=== PATIENT | female | born 1950 | race Caucasian/White ===

== ENCOUNTER 2018-04-15 10:00 | Inpatient (IN) | payer OTHER ==
[~2018-04-15] VITALS: Ht 165.1 cm; Wt 94.9 kg
--- NOTE | ~2018-04-15 | EKG ---
[address] [address] ELECTROCARDIOGRAM REPORT Name: JUVENCIO HAYES Room #: 431-P ADM IN M.R.#: [id number] Admission: 04/15/18 Attend Phys: Karo Auguste MD Discharge: Date of : 46 Report #: [id number] THIS REPORT FOR: //name// [facility]ly [facility] ED Test Date: 2018-04-15 Test Time: 10:38:59 Pat Name: JUVENCIO HAYES Department: Room: 431 Gender: F Palliative Care Physician: ANU : 1950 Requested By: Estela Vasquez Order Number: [id number] MD: Norris Lazo Measurements Intervals [place] Rate: 68 P: 57 MA: 165 QRS: 15 QRSD: 97 T: 19 QT: 404 QTc: 430 Interpretive Statements Sinus rhythm Inferior infarct, old No previous ECG available for comparison Electronically Signed On 04-15-2018 16:48:39 SPARE PERSON by Norris Lazo [email or web address] <ELECTRONICALLY SIGNED> By: Norris Lazo MD 04/15/18 1648 1038 Grey Lazo MD /STEPHANIE
--- NOTE | ~2018-04-15 | HC ---
[facility] [place] [address] CONSULTATION Name: JUVENCIO HAYES Room #: 222-P ADM IN M.R.#: [id number] Admission: 04/15/18 Attend Phys: Karo Auguste MD Discharge: Date of : 46 Report #: [id number] THIS REPORT FOR: //name// CC: NO PCP Karo Auguste DATE OF SERVICE: 04/23/2018 HISTORY OF PRESENT ILLNESS: The patient is a 68-year-old white female visiting from [place], [place] with a history of severe thoracolumbar scoliosis. She underwent Coffey edelmira surgery at the [facility] 49 years ago. She has had problems developing with the surgical site, significant low back pain and subsequently underwent a major two-step corrective surgery in [place], [place] for impaired instrumentation. She had an anterior approach with L4, L5 and S1 cages and then posteriorly, there were 3 more rods that were added and she had 6-inch spikes in her pelvis. This occurred on two different dates in March. She went to stay with her daughter in the [place] area postoperatively to help with her recovery. She is not to do any bending, lifting or twisting. While staying with her daughter, she had the onset of severe nausea, vomiting and developed acute diverticulitis. She was diagnosed with Staphylococcus septicemia, had acute renal insufficiency with acute interstitial nephritis. She has multiple consultants involved. She has had a significant functional decline, was trying to ambulate as best she could with a walker prior to this acute hospitalization. We are seeing her now in rehabilitation medicine consultation. PAST MEDICAL HISTORY: Delineated above. She has a prior history of the back surgery x 2 in [place] and has had a prior cholecystectomy. MEDICATIONS: Please see the full medication listing. This includes vitamins, herbals, and supplements. ALLERGIES: CODEINE, MEPERIDINE, MORPHINE, PENTAZOCINE. SOCIAL HISTORY: As noted above. She and her are currently staying with her daughter in an apartment here in the [place] area. No steps. Daughter works and the patient and are there during the day. REVIEW OF SYSTEMS: Complains of abdominal discomfort. The back pain is overall improved. Concern regarding balance overall weakness and decreased ability. No current chest pain or shortness of breath. PHYSICAL EXAMINATION: GENERAL: Pleasant 68-year-old white female in no obvious distress. VITAL SIGNS: Last [id number] temperature 97.8, pulse 74, respirations 18, blood pressure 154/103. [facility] [address] [place] [address] CONSULTATION Name: JUVENCIO HAYES Room #: 222-P ADM IN M.R.#: [id number] Admission: 04/15/18 Attend Phys: Karo Auguste MD Discharge: Date of : 46 Report #: [id number] NEUROLOGIC: She is alert, pleasant, oriented, excellent historian. Facies are symmetric. Functional range of motion of both upper extremities. Strength is a grade 4 to 4-/5. CHEST: Sounded clear to auscultation. CARDIOVASCULAR: Regular rate and rhythm. ABDOMEN: Bowel sounds positive, nontender. EXTREMITIES: She has the anterior abdominal midline incision that appears to be healing. There is no erythema. On examination of her back, she has a very long back incision essentially from the nape of the neck all the way down to her sacrum. No evidence of erythema. Lower extremities functional range of motion, strength is grade 4-/5. DTRs are 1. There is no clonus. She is standby assistance with sit to stand. She has irregular steppage with attempted ambulation, decreased balance, very unsteady without any type of assistive device, fatigues quickly, min assist to contact guard to attempt any steps. ASSESSMENT: A 68-year-old white female with a complex history noted above. 1. Severe scoliosis with chronic back pain status post major corrective surgery x 2 for impaired instrumentation as described above. 2. Gait instability with lower extremity weakness and decreased balance and ADLs. 3. Staph septicemia. 4. Acute diverticulitis. 5. Sepsis. 6. Acute renal insufficiency. 7. Acute interstitial nephritis. 8. Chronic low back pain. 9. Hypertension. PLAN: Occupational therapy will reassess. I am anticipating that the patient would benefit from a short acute in-hospital inpatient rehabilitation stay, but we will see what the occupational therapy reassessment reveals. Discussed with the patient and several family members. We will be glad to follow along with you. By: [id number] Dorian Meade MD /nt
--- NOTE | ~2018-04-15 | HC ---
[facility] [place] [address] CONSULTATION Name: JUVENCIO HAYES Room #: 431-P ADM IN M.R.#: [id number] Admission: 04/15/18 Attend Phys: Karo Auguste MD Discharge: Date of : 46 Report #: [id number] THIS REPORT FOR: //name// CC: NO PCP Karo Auguste DATE OF SERVICE: 04/16/2018 HISTORY OF PRESENT ILLNESS: A 68-year-old white woman who developed severe abdominal pain, gross lower abdomen, mainly left-sided; severe nausea and vomiting, evaluated in her hometown in [place], [place], diagnosed to have gastroenteritis, and discharged home on nausea medications. She did not improve. She is evaluated in the ER here. The CT scan revealed diverticulitis, her blood cultures returned positive, and an ID opinion is requested. Today, the patient is feeling better, still some abdominal pain, lower abdomen. DRUG ALLERGIES: CODEINE, MEPERIDINE, MORPHINE, PENTAZOCINE. MEDICATIONS: The patient is currently on treatment with Flagyl 500 mg IV every 8 hours, ciprofloxacin 400 mg IV twice daily, single-dose vancomycin. She received Solu-Medrol 125 mg IV one dose. She is on Ambien and diazepam at bedtime, Forteo subcutaneously, lactobacillus acidophilus, oxycodone immediate release 7.5 mg every 8 hours if needed, fentanyl 25 mcg IV q. 3 h. p.r.n., D5 and normal saline 1000 mL every 10 hours. PAST MEDICAL HISTORY: Exploratory laparotomy for necrotic omentum many years ago. History of extensive lumbar spine instrumentation through an anterior and posterior approach, last surgical intervention on her back was in 03/2018. Previous surgery to her back required iliac crest for stabilization of the spine. SOCIAL HISTORY: with a grown daughter who is present during the interview and physical exam. REVIEW OF SYSTEMS: Abdominal pain, nausea, and vomiting, improved today. PHYSICAL EXAMINATION: GENERAL: A well-developed woman, not toxic looking, no distress. VITAL SIGNS: Temperature 98, pulse 70, respirations 16, BP 134/55, height 5 feet, 5 inches, weight 199 pounds. HEENMT: Within range. NECK: Supple. BREASTS: Deferred. LUNGS: Clear. HEART: S1, S2. No gallop or murmur. ABDOMEN: Right lower abdominal quadrant laparotomy wound, remote, [facility] [address] [place] [address] CONSULTATION Name: JUVENCIO HAYES Room #: 431-P ADM IN M.R.#: [id number] Admission: 04/15/18 Attend Phys: Karo Auguste MD Discharge: Date of : 46 Report #: [id number] infraumbilical laparotomy scar, recent. Abdomen tender, particularly left lower quadrant. No palpable masses. PELVIC AND RECTAL: Deferred. BACK: Revealed extensive scars from the thoracic to the lumbar spine area, as well as bilateral iliac crest bone harvesting procedure surgical scars. EXTREMITIES: No clubbing, cyanosis. PELVIC AND RECTAL: Deferred. EXTREMITIES: No pretibial edema. LABORATORY DATA: Sodium 142, potassium 4, BUN 8, creatinine 0.7, glucose 144. On admission, calcium 10.5 mg/dL, repeated today is 9.6 mg/dL. Alkaline phosphatase 209 U/L. WBC 8100, hemoglobin 10.6 g/dL, and platelets 295,000. Urinalysis revealed trace blood, otherwise negative. Blood cultures x2 two minutes apart revealed Gram-positive cocci. RADIOLOGY EVALUATION: The CT scan of the abdomen and pelvis revealed extensive lumbar spine instrumentation. There is also stranding and thickening of the descending colon with some fluid along the lateral conal fascia. Findings are compatible with diverticulitis, multiple colonic diverticula noticed. Appendix not visualized. Left adrenal adenoma. Possibly scarring adjacent to sacrum and iliac vessels, possibly thickening of distal stomach measuring 16 mm, status post cholecystectomy. ASSESSMENT: 1. Abdominal pain and nausea and vomiting secondary to acute diverticulitis. 2. Bacteremia with Gram-positive cocci secondary to above. 3. Extensive lumbar spine instrumentation through anterior and posterior approach, 03/07/2018. 4. History of exploratory laparotomy for necrotic omentum. 5. Status post cholecystectomy and appendectomy. 6. Thickening of distal esophagus, question etiology. 7. Normocytic normochromic anemia. SUGGESTIONS: Recommend ESR, CRP. Continue Cipro and Flagyl since the patient already improved. We will request pharmacy continue to dose vancomycin until identification of Gram-positive cocci is established. Dr. Auguste, thank you for requesting my suggestions. <ELECTRONICALLY SIGNED> By: Zi Lazo MD 04/17/18 1005 1119 Zi Lazo MD /nt
[2018-04-15 10:05] VITALS: BP 132/51
[2018-04-15 10:24] LABS: URINE BILIRUBIN NEGATIVE (Negative); URINE BLOOD TRACE (Negative); URINE CLARITY CLEAR; URINE COLOR YELLOW; URINE GLUCOSE-RANDOM* NEGATIVE (Negative); URINE KETONES NEGATIVE (Negative); URINE LEUKOCYTES-REFLEX NEGATIVE (Negative); URINE NITRITE-REFLEX NEGATIVE (Negative); URINE PROTEIN (DIPSTICK) NEGATIVE (Negative); URINE SPECIFIC GRAVITY 1.015 (1.005-1.035); URINE UROBILINOGEN 0.2 E.U./dl (0.2-1.0)
[2018-04-15 10:43] LABS: ABSOLUTE NEUTROPHILS 3.9 thou/uL (1.4-8.2); BASOPHILS 0.9 % (0.0-2.0); EOSINOPHILS 1.7 % (0.0-3.0); HEMOGLOBIN 12.2 gm/dL (12.0-15.0); LYMPHOCYTES 17.8 % (24.0-44.0); MCH 27.9 pg (26.0-34.0); MCHC 33.7 g/dL (28.0-37.0); MCV 82.9 fL (80.0-100.0); MONOCYTES 9.1 % (1.0-8.0); PLATELET COUNT 322 thou/uL (150-400); POLYS 70.5 % (36.0-66.0); RBC 4.35 mil/uL (4.20-5.00); RDW 14.2 % (10.5-14.5); WBC 5.6 thou/uL (4.0-11.0)
[2018-04-15 10:53] LABS: ANION GAP 9 mmol/L (7-16); BUN 8 mg/dL (7-18); CALCIUM 10.5 mg/dL (8.5-10.1); CHLORIDE 103 mmol/L (98-107); CO2 28 mmol/L (21-32); CREATININE 0.8 mg/dL (0.6-1.0); GLUCOSE 128 mg/dL (74-106); SODIUM 140 mmol/L (136-145)
[2018-04-15 11:02] LABS: ALBUMIN 3.6 g/dL (3.4-5.0); LIPASE 113 U/L (73-393); SGOT 18 U/L (15-37); SGPT 22 U/L (30-65); TOTAL BILIRUBIN 0.4 mg/dL (<0.1-1.0); TOTAL PROTEIN 7.5 g/dL (6.4-8.2); TROPONIN-I <0.06 ng/mL (<0.06)
[2018-04-15] MEDS ORDERED: OXYCODONE HCL15 MG PO (11:16)
[2018-04-15] MEDS ORDERED: HYOSCYAMINE0.125 MG PO (11:17)
[2018-04-15] MEDS ORDERED: NEURONTIN 300300 M1 PO (11:17)
[2018-04-15] MEDS ORDERED: ZOFRAN ODT4 MG PO (11:18)
[2018-04-15] MEDS ORDERED: FORTEO750 MCG/3 SUBQ (11:18)
[2018-04-15] MEDS ORDERED: DIAZEPAM 10 MG10 M2 PO (11:20)
[2018-04-15 12:24] VITALS: BP 145/65
[2018-04-15 13:30] VITALS: BP 158/82
[2018-04-15] MEDS ORDERED: MAGOX 400400 MG PO (14:20)
[2018-04-15] MEDS ORDERED: COLACE100 MG PO (14:20)
[2018-04-15] MEDS ORDERED: PROBIOTIC1 EAC1 PO (14:21)
[2018-04-15] MEDS ORDERED: CALCIUM 600 +1 EAC1 PO (14:21)
[2018-04-15 20:00] VITALS: BP 126/63
[2018-04-16 04:00] VITALS: BP 106/45
[2018-04-16 06:45] LABS: HEMATOCRIT 30.7 % (37.0-47.0); HEMOGLOBIN 10.6 gm/dL (12.0-15.0); MCH 28.5 pg (26.0-34.0); MCHC 34.4 g/dL (28.0-37.0); MCV 82.7 fL (80.0-100.0); RBC 3.71 mil/uL (4.20-5.00); WBC 8.1 thou/uL (4.0-11.0)
[2018-04-16 06:56] LABS: CALCIUM 9.6 mg/dL (8.5-10.1); CREATININE 0.7 mg/dL (0.6-1.0)
[2018-04-16 08:53] VITALS: BP 134/55
[2018-04-16 17:17] VITALS: BP 137/65
[2018-04-16 19:39] VITALS: BP 135/69
[2018-04-17 05:10] VITALS: BP 137/59
[2018-04-17 08:25] VITALS: BP 124/63
[2018-04-17 17:17] VITALS: BP 167/81
[2018-04-18 01:50] LABS: FOLIC ACID 16.3 ng/mL (8.6-58.9)
[2018-04-18 08:23] VITALS: BP 158/72
[2018-04-18 12:56] LABS: ABSOLUTE NEUTROPHILS 3.6 thou/uL (1.4-8.2); BASOPHILS 1.3 % (0.0-2.0); HEMATOCRIT 32.7 % (37.0-47.0); HEMOGLOBIN 11.2 gm/dL (12.0-15.0); LYMPHOCYTES 22.5 % (24.0-44.0); MCH 28.6 pg (26.0-34.0); MCHC 34.3 g/dL (28.0-37.0); MCV 83.3 fL (80.0-100.0); MONOCYTES 10.5 % (1.0-8.0); PLATELET COUNT 265 thou/uL (150-400); POLYS 61.7 % (36.0-66.0); RBC 3.93 mil/uL (4.20-5.00); RDW 14.2 % (10.5-14.5); WBC 5.9 thou/uL (4.0-11.0)
[2018-04-18 19:26] VITALS: BP 166/71
[2018-04-19 04:39] LABS: ABSOLUTE NEUTROPHILS 2.5 thou/uL (1.4-8.2); BASOPHILS 1.2 % (0.0-2.0); EOSINOPHILS 5.9 % (0.0-3.0); HEMATOCRIT 29.5 % (37.0-47.0); HEMOGLOBIN 10.2 gm/dL (12.0-15.0); LYMPHOCYTES 26.8 % (24.0-44.0); MCH 28.7 pg (26.0-34.0); MCHC 34.5 g/dL (28.0-37.0); MCV 83.3 fL (80.0-100.0); MONOCYTES 11.9 % (1.0-8.0); PLATELET COUNT 235 thou/uL (150-400); POLYS 54.2 % (36.0-66.0); RBC 3.54 mil/uL (4.20-5.00); RDW 13.9 % (10.5-14.5); WBC 4.6 thou/uL (4.0-11.0)
[2018-04-19 05:00] LABS: ALBUMIN 2.6 g/dL (3.4-5.0); CALCIUM 8.4 mg/dL (8.5-10.1); CREATININE 0.7 mg/dL (0.6-1.0); MAGNESIUM 1.6 mg/dL (1.8-2.4); TOTAL BILIRUBIN 0.4 mg/dL (<0.1-1.0); TOTAL PROTEIN 5.4 g/dL (6.4-8.2)
[2018-04-19 07:57] VITALS: BP 143/79
[2018-04-19 19:52] VITALS: BP 148/66
[2018-04-20 08:20] VITALS: BP 155/79
[2018-04-20 21:31] VITALS: BP 152/82
[2018-04-21 07:39] LABS: HEMATOCRIT 29.7 % (37.0-47.0); HEMOGLOBIN 10.2 gm/dL (12.0-15.0); MCH 28.4 pg (26.0-34.0); MCHC 34.3 g/dL (28.0-37.0); MCV 82.8 fL (80.0-100.0); RBC 3.59 mil/uL (4.20-5.00); RDW 14.3 % (10.5-14.5); WBC 5.6 thou/uL (4.0-11.0)
[2018-04-21 07:52] VITALS: BP 154/81
[2018-04-21 07:58] LABS: CALCIUM 9.1 mg/dL (8.5-10.1); MAGNESIUM 1.7 mg/dL (1.8-2.4); POTASSIUM 3.3 mmol/L (3.5-5.1)
[2018-04-21 08:02] LABS: CREATININE 2.1 mg/dL (0.6-1.0)
[2018-04-21 20:16] LABS: URINE BILIRUBIN NEGATIVE (Negative); URINE BLOOD NEGATIVE (Negative); URINE CLARITY CLEAR; URINE COLOR YELLOW; URINE GLUCOSE-RANDOM* NEGATIVE (Negative); URINE KETONES NEGATIVE (Negative); URINE LEUKOCYTES-REFLEX NEGATIVE (Negative); URINE NITRITE-REFLEX NEGATIVE (Negative); URINE PROTEIN (DIPSTICK) NEGATIVE (Negative); URINE SPECIFIC GRAVITY <= 1.005 (1.005-1.035); URINE UROBILINOGEN 0.2 E.U./dl (0.2-1.0)
[2018-04-21 21:06] VITALS: BP 146/78
[2018-04-22 06:46] LABS: CALCIUM 9.4 mg/dL (8.5-10.1); CREATININE 2.2 mg/dL (0.6-1.0); POTASSIUM 3.6 mmol/L (3.5-5.1)
[2018-04-22 07:30] VITALS: BP 156/75
[2018-04-22 19:25] VITALS: BP 153/98
[2018-04-23 01:30] LABS: HEMATOCRIT 28.8 % (37.0-47.0); HEMOGLOBIN 9.8 gm/dL (12.0-15.0); MCH 28.5 pg (26.0-34.0); MCHC 34.1 g/dL (28.0-37.0); MCV 83.6 fL (80.0-100.0); PLATELET COUNT 156 thou/uL (150-400); RBC 3.45 mil/uL (4.20-5.00); RDW 14.4 % (10.5-14.5); WBC 6.7 thou/uL (4.0-11.0)
[2018-04-23 01:46] LABS: ALBUMIN 2.8 g/dL (3.4-5.0); CALCIUM 9.1 mg/dL (8.5-10.1); PHOSPHORUS 3.3 mg/dL (2.5-4.9); POTASSIUM 3.3 mmol/L (3.5-5.1); TOTAL BILIRUBIN 0.4 mg/dL (<0.1-1.0); TOTAL PROTEIN 5.8 g/dL (6.4-8.2)
[2018-04-23 02:15] LABS: ABSOLUTE NEUTROPHILS 4.8 thou/uL (1.4-8.2); METAMYELOCYTES 2 %
[2018-04-23 02:16] LABS: PLATELET ESTIMATE NORMAL; POLYCHROMASIA OCCASIONAL
[2018-04-23 07:40] VITALS: BP 154/103
[2018-04-23 19:55] VITALS: BP 149/61
[2018-04-24 04:25] LABS: CALCIUM 9.2 mg/dL (8.5-10.1); CREATININE 1.9 mg/dL (0.6-1.0); POTASSIUM 3.5 mmol/L (3.5-5.1)
[2018-04-24 07:52] VITALS: BP 155/77
[2018-04-24] MEDS ORDERED: FENTANYL 0.50 MCG/ML IV PUSH (11:09)
[2018-04-24] MEDS ORDERED: ONDANSETRON HCL4 M1 IV PUSH (11:09)
[2018-04-24] MEDS ORDERED: MIRALAX17 GM PO (11:09)
[2018-04-24] MEDS ORDERED: ACETAMINOPHEN325 M1 PO (11:09)
[2018-04-24] MEDS ORDERED: K-DUR 20 MEQ T20 MEQ PO (11:09)
== END 2018-04-24 18:24 | DRG 871 ==
LOC: ER 10:00 → 4E 11:56 → EROBS 11:56 → 4E 12:46 → SICU 04-17 17:57
PROVIDERS: Internal Medicine; Internal Medicine Infectious Disease; Nurse Practitioner Family
PROC: 05HB33Z Insertion of Infusion Device into Right Basilic Vein, Percutaneous Approach (ICD-10-PCS; principal; 2018-04-18)
DX: A41.2 Sepsis due to unspecified staphylococcus (principal); E43 Unspecified severe protein-calorie malnutrition; N10 Acute pyelonephritis; N17.9 Acute kidney failure, unspecified; K57.92 Diverticulitis of intestine, part unspecified, without perforation or abscess without bleeding; D64.9 Anemia, unspecified; M41.9 Scoliosis, unspecified; G89.29 Other chronic pain; M54.9 Dorsalgia, unspecified; M62.84 Sarcopenia; M81.0 Age-related osteoporosis without current pathological fracture; E87.6 Hypokalemia; E83.42 Hypomagnesemia; Z68.34 Body mass index [BMI] 34.0-34.9, adult; Z28.21 Immunization not carried out because of patient refusal; Z88.6 Allergy status to analgesic agent; Z88.8 Allergy status to other drugs, medicaments and biological substances; Z90.49 Acquired absence of other specified parts of digestive tract; Z85.3 Personal history of malignant neoplasm of breast; Z79.899 Other long term (current) drug therapy
CPT/HCPCS: 10084; 15002; 27000

== ENCOUNTER 2018-04-24 08:04 | Inpatient (IN) | payer OTHER ==
[~2018-04-24] VITALS: Ht 165.1 cm; Wt 85.7 kg
--- NOTE | ~2018-04-24 | H ---
[facility] [place] [place] [address] HISTORY AND PHYSICAL Name: JUVENCIO HAYES Room #: 515-P ADM IN M.R.#: [id number] Admission: 04/24/18 Attend Phys: Dorian Meade MD Discharge: Date of : 46 Report #: [id number] THIS REPORT FOR: //name// CC: Dorian Meade [facility] unknown DATE OF SERVICE: 04/24/2018 HISTORY AND PHYSICAL/POSTADMISSION PHYSICIAN EVALUATION HISTORY OF PRESENT ILLNESS: The patient is a 68-year-old white female visiting from [place], [place] with a history of severe thoracolumbar scoliosis. She had undergone a Coffey edelmira surgery at the [facility] 49 years ago. She had problems with low back pain and problems developing at the surgical site after these many years and subsequently underwent a major two-step corrective surgery in [place], [place] for impaired instrumentation in March. She had an anterior approach with L4, L5, and S1 cages placed and then posteriorly, there are 3 more rods that were added and she had a 6-inch spike placed in each pelvis. This occurred on two different dates in March. She went to stay with her daughter in [place] postoperatively to help with her recovery. While staying with her daughter, she had the onset of severe nausea, vomiting, and developed acute diverticulitis. She was diagnosed with Staphylococcus septicemia, had acute renal insufficiency with acute interstitial nephritis. Multiple consultants have been involved. She was noted to have a significant functional decline from her premorbid status. She developed acute kidney injury, question of postinfectious glomerulonephritis. Vancomycin and Zyvox were discontinued, was given IV fluid rehydration. She has now been admitted for acute in-hospital inpatient rehabilitation. PAST MEDICAL HISTORY: As noted above. She has a prior history of back surgery x 2 in [place] and has had a prior cholecystectomy. MEDICATIONS: Please see the full medication listing, this includes vitamins, herbals, and supplements. ALLERGIES: CODEINE, MEPERIDINE, MORPHINE, PENTAZOCINE. SOCIAL HISTORY: She and her are currently staying with their daughter in an apartment here in [facility]. No steps. Daughter works and the patient and her have been there during the day. Again, the patient is originally from [place], [place]. REVIEW OF SYSTEMS: She has some abdominal discomfort, which is improving. Back pain overall improved. She is not to do any bending, twisting or lifting. No current chest pain, shortness of breath, or focal extremity pain complaints. [facility] [address] [place] [address] HISTORY AND PHYSICAL Name: JUVENCIO HAYES Room #: 515-P [facility] IN .R.#: [id number] Admission: 04/24/18 Attend Phys: Dorian Meade MD Discharge: Date of : 46 Report #: [id number] PHYSICAL EXAMINATION: GENERAL: A pleasant 68-year-old white female, in no obvious distress. She is a good historian. VITAL SIGNS: Her last recorded temperature 98.4, pulse 70, respirations 17, blood pressure 155/77. HEENT: Appeared to be benign. NEUROLOGIC: Cranial nerves grossly intact. Facies are symmetric. CHEST: Sounded clear to auscultation. CARDIAC: Regular rate and rhythm. ABDOMEN: Bowel sounds positive, nontender. GENITOURINARY AND RECTAL: Deferred. MUSCULOSKELETAL: Functional range of motion of both upper extremities, strength is grade 4-/5. Lower extremities with functional range of motion, strength is grade 3+ to 4-/5. Upon examination of her back, she does have a very long surgical scar from the nape of the neck all the way down to her sacral area. No erythema. She also has abdominal incision, which appears to be healing. Functionally, she is standby assist with transfers. She is needing intermittent min assist for short distance ambulation with instability. ADL setup is mod assist. Tub shower and transfers are noted to be min assist. ASSESSMENT: A 68-year-old white female with the following problem list: 1. Severe scoliosis with chronic back pain, status post major corrective surgery x 2 for impaired instrumentation. 2. Bilateral lower extremity weakness, decreased balance and ADLs with gait instability. 3. Staph septicemia. 4. Acute diverticulitis. 5. Sepsis. 6. Acute renal insufficiency. 7. Acute interstitial nephritis. 8. Chronic low back pain. 9. Hypertension. PLAN: The patient is admitted for acute in-hospital inpatient rehabilitation. From a postadmission physician evaluation perspective, there are no relevant changes since the preadmission screening. Please see the prior and current medical and functional conditions and comorbidities. Please see the patient's previous and current functional status. As far as risk of complications, the patient has multiple medical comorbidities as noted above. The initial plan of care involves the interdisciplinary acute inpatient rehabilitation program with the goal of maximizing her functional independence, so she can hopefully return back to her prior living situation. Measurable functional goals would be for the patient to become modified independent with transfers, mobility, and ADLs, so she can return back to the home setting. She needs to improve her balance and independence. Prognosis is reasonably good. We would anticipate a fairly short length of stay, probably 5-10 days, depending progress. Potential [address] [address] HISTORY AND PHYSICAL Name: JUVENCIO HAYES Room #: 515-P ADM IN .R.#: [id number] Admission: 04/24/18 Attend Phys: Dorian Meade MD Discharge: Date of : 46 Report #: [id number] barriers would include her multiple medical comorbidities and decreased functional status. By: 0821 Dorian Meade MD /nt
--- NOTE | ~2018-04-24 | PLAN ---
[facility] [place] [address] REHAB UNIT PLAN OF CARE Name: JUVENCIO HAYES Room #: 515-P ADM IN M.R.#: [id number] Admission: 04/24/18 Attend Phys: Dorian Meade MD Discharge: Date of : 46 Report #: [id number] THIS REPORT FOR: //name// CC: Dorian Meade [facility] unknown DATE OF SERVICE: 04/26/2018 PROGRESS NOTE/OVERALL PLAN OF CARE SUBJECTIVE: The patient was seen earlier in followup. She was in no distress. Family has been very attentive. She has been working with therapies with transfers, contact guard assistance. Gait min-assist 175 feet with a front-wheeled walker. In occupational therapy, lower body dressing has been min-assist. ASSESSMENT: 1. Severe scoliosis with chronic back pain, status post major corrective surgery x 2 for impaired instrumentation. 2. Bilateral lower extremity weakness with decreased balance and ADLs and gait instability. 3. Staph septicemia. 4. Acute diverticulitis. 5. Sepsis. 6. Acute renal insufficiency. 7. Acute interstitial nephritis. 7. Chronic low back pain. 9. Hypertension. PLAN: The overall plan of care is based on the preadmission screen, post-admission physician evaluation and information garnered from therapy assessments. 1. Estimated length of stay is probably 5-10 days pending progress. 2. Medical prognosis is reasonably good. 3. Anticipated interventions includes the interdisciplinary acute inpatient rehabilitation program with PT and OT working with her rehab nursing assisting regarding medication management, skin care prophylaxis, bowel and bladder issues and nursing education. Case management is involved as well as the interdisciplinary rehabilitation team and consulting physicians. 4. Anticipated functional outcomes would be for the patient to become modified independent at least at the walker level with mobility and ADLs that she can return back to the home setting. 5. Discharge destination would be back home, likely initially with her daughter. 6. Expected therapy by discipline includes PT and OT 1-1/2 hours per day, each [address] [address] REHAB UNIT PLAN OF CARE Name: JUVENCIO HAYES Room #: 515-P [facility] IN ..#: [id number] Admission: 04/24/18 Attend Phys: Dorian Meade MD Discharge: Date of : 46 Report #: [id number] five days a week throughout the duration of the acute inpatient rehabilitation stay. By: [id number] 1159 Dorian Meade MD /nt
--- NOTE | ~2018-04-24 | HC ---
[facility] [place] [address] [place] [address] CONSULTATION Name: JUVENCIO HAYES Room #: 515-P ADM IN M.R.#: [id number] Admission: 04/24/18 Attend Phys: Dorian Meade MD Discharge: Date of : 46 Report #: [id number] THIS REPORT FOR: //name// CC: Dorian Meade [facility] unknown DATE OF SERVICE: 04/27/2018 NEUROBEHAVIORAL STATUS EXAMINATION ATTENDING PHYSICIAN: Dorian Meade MD ASSOCIATE MERCHANDISER: Terry Sears, PhD CLINICAL PRESENTATION: The patient is a 68-year-old female, admitted to the [facility] Rehabilitation Unit for comprehensive inpatient program to improve functional mobility and activities of daily living and self-care. She is reported to have been visiting her daughter. Her residence is [place], [place]. She carries a history of severe thoracolumbar scoliosis and had undergone a Coffey edelmira surgery at the [facility] 49 years ago. It was necessary to have a corrective surgery and she underwent a 2-step corrective surgery in [place], [place] in 03/2018. The patient has had a difficult recovery. While staying with her daughter to assist in her recovery, she developed severe nausea, vomiting and acute diverticulitis. The patient was diagnosed with a staphylococcus septicemia and acute renal insufficiency along with interstitial nephritis. Her assessment on admission to rehabilitation included severe scoliosis with chronic back pain status post major corrective surgery x 2 for impaired instrumentation, bilateral lower extremity weakness, staph septicemia, acute diverticulitis, sepsis, acute renal insufficiency, acute interstitial nephritis, chronic low back pain, and hypertension. A complete description of her medical condition and history along with medications can be found in her medical record. Neuropsychological consultation was requested to provide assistance in the assessment of cognitive and emotional status and to provide recommendations and services. Prior to this most recent medical event, she was living independently with her in their home. It shouild be noted that she required the corrective surgery because of severe mobility deficits and pain. 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 She has 5 children. Her family is described as supportive. [facility] [address] [place] [address] CONSULTATION Name: JUVENCIO HAYES Room #: 515-P [facility] IN M.R.#: [id number] Admission: 04/24/18 Attend Phys: Dorian Meade MD Discharge: Date of : 46 Report #: [id number] TECHNIQUES UTILIZED: Clinical interview, review of medical records, staff consultation and behavioral observation, mini mental status exam 2 brief version. EXAMINATION FINDINGS: The patient was alert and cooperative with the assessment. She accurately described events surrounding her admission and frustration with her lengthy recovery and ongoing medical issues. She describes her symptoms to include intermittent periods of depression and anxiety, difficulty with sleep and diminished appetite. She does not have a history of alcohol or drug abuse. Normal use of caffeine is described. There is no evidence of aphasia. She does not report auditory or visual hallucinations. There is no evidence of thought disorder. Her primary concerns are in regard to her abdominal pain, which has persisted. She is feeling very optimistic about the recovery from her back surgery, but primarily now frustrated with the length of recovery from her abdominal issues. Her performance on the MMSE 2 brief version is within normal limits with a raw score 16/16. She is 3/3 for initial registration, 5/5 for orientation to time and place, and 3/3 for immediate recall of 3 items after a brief time delay and distraction. Variability in cognitive function secondary to pain medication is likely. However, her cognitive function appears well maintained. DIAGNOSTIC IMPRESSION: Unspecified anxiety disorder with intermittent depression. RECOMMENDATIONS: The patient is not interested in the use of medications for anxiety or depression. I think she will benefit from the use of relaxation techniques along with reassurance in regard to her overall general recovery and assistance in recognizing improvement in her medical wellbeing following her back surgery. By focusing attention on the benefits received from back surgery will help improve her overall sense of confidence as she continues her recovery. Thank you very much for allowing me to provide the consultation on this patient. <ELECTRONICALLY SIGNED> By: Terry Sears, PhD 04/27/18 1930 [id number] 1625 Terry Sears, PhD /nt
[~2018-04-24 08:04] MED LIST: CALCIUM 600 +1 EAC1 PO; COLACE100 MG PO; DIAZEPAM 10 MG10 M2 PO; FORTEO750 MCG/3 SUBQ; HYOSCYAMINE0.125 MG PO; MAGOX 400400 MG PO; NEURONTIN 300300 M1 PO; OXYCODONE HCL15 MG PO; PROBIOTIC1 EAC1 PO; ZOFRAN ODT4 MG PO
[2018-04-24] MEDS ORDERED: K-DUR 20 MEQ T20 MEQ PO (11:09)
[2018-04-24] MEDS ORDERED: ACETAMINOPHEN325 M1 PO (11:09)
[2018-04-24] MEDS ORDERED: MIRALAX17 GM PO (11:09)
[2018-04-24] MEDS ORDERED: ONDANSETRON HCL4 M1 IV PUSH (11:09)
[2018-04-24] MEDS ORDERED: FENTANYL 0.50 MCG/ML IV PUSH (11:09)
[2018-04-25 05:56] LABS: HEMATOCRIT 29.9 % (37.0-47.0); MCH 27.7 pg (26.0-34.0); MCHC 33.4 g/dL (28.0-37.0); RBC 3.6 mil/uL (4.20-5.00); WBC 5.9 thou/uL (4.0-11.0)
[2018-04-25 06:11] LABS: CALCIUM 9.2 mg/dL (8.5-10.1); CREATININE 1.8 mg/dL (0.6-1.0); POTASSIUM 3.5 mmol/L (3.5-5.1)
[2018-04-25 08:30] VITALS: BP 151/79
[2018-04-25 20:09] VITALS: BP 145/71
[2018-04-26 08:11] VITALS: BP 154/69
[2018-04-26 20:14] VITALS: BP 166/85
[2018-04-27 08:00] VITALS: BP 160/69
[2018-04-27 20:15] VITALS: BP 150/73
[2018-04-28 05:31] LABS: ABSOLUTE NEUTROPHILS 3.2 thou/uL (1.4-8.2); BASOPHILS 1.3 % (0.0-2.0); EOSINOPHILS 5.9 % (0.0-3.0); HEMATOCRIT 27.2 % (37.0-47.0); LYMPHOCYTES 20.2 % (24.0-44.0); MCH 27.4 pg (26.0-34.0); MCHC 32.9 g/dL (28.0-37.0); MONOCYTES 9.1 % (1.0-8.0); PLATELET COUNT 176 thou/uL (150-400); POLYS 63.5 % (36.0-66.0); RBC 3.28 mil/uL (4.20-5.00); RDW 14.1 % (10.5-14.5); WBC 5.1 thou/uL (4.0-11.0)
[2018-04-28 05:48] LABS: ALBUMIN 2.6 g/dL (3.4-5.0); CALCIUM 8.7 mg/dL (8.5-10.1); CREATININE 1.7 mg/dL (0.6-1.0); TOTAL BILIRUBIN 0.3 mg/dL (<0.1-1.0); TOTAL PROTEIN 5.7 g/dL (6.4-8.2)
[2018-04-28 08:07] VITALS: BP 17/76
[2018-04-28 09:28] LABS: MAGNESIUM 2.1 mg/dL (1.8-2.4)
[2018-04-28 20:45] VITALS: BP 177/87
[2018-04-29 09:16] VITALS: BP 166/75
[2018-04-29 21:15] VITALS: BP 179/93
[2018-04-30 07:27] LABS: ABSOLUTE NEUTROPHILS 2.7 thou/uL (1.4-8.2); BASOPHILS 1.5 % (0.0-2.0); EOSINOPHILS 6.5 % (0.0-3.0); HEMATOCRIT 28.1 % (37.0-47.0); HEMOGLOBIN 9.4 gm/dL (12.0-15.0); LYMPHOCYTES 19.2 % (24.0-44.0); MCH 27.3 pg (26.0-34.0); MCHC 33.5 g/dL (28.0-37.0); MCV 81.5 fL (80.0-100.0); PLATELET COUNT 166 thou/uL (150-400); POLYS 62.8 % (36.0-66.0); RBC 3.44 mil/uL (4.20-5.00); RDW 13.8 % (10.5-14.5); WBC 4.3 thou/uL (4.0-11.0)
[2018-04-30 07:40] LABS: CALCIUM 9.3 mg/dL (8.5-10.1); CREATININE 1.6 mg/dL (0.6-1.0); POTASSIUM 3.3 mmol/L (3.5-5.1)
[2018-04-30 08:15] VITALS: BP 167/71
[2018-04-30 19:42] VITALS: BP 162/72
[2018-05-01 08:53] VITALS: BP 174/88
[2018-05-01 19:55] VITALS: BP 158/79
[2018-05-02 07:51] VITALS: BP 166/79
[2018-05-02 12:39] LABS: HEMATOCRIT 27.8 % (37.0-47.0); HEMOGLOBIN 9.7 gm/dL (12.0-15.0); MCH 28.2 pg (26.0-34.0); MCHC 34.9 g/dL (28.0-37.0); MCV 80.9 fL (80.0-100.0); PLATELET COUNT 154 thou/uL (150-400); RBC 3.43 mil/uL (4.20-5.00); RDW 13.8 % (10.5-14.5); WBC 4.9 thou/uL (4.0-11.0)
[2018-05-02 12:48] LABS: CREATININE 1.5 mg/dL (0.6-1.0); MAGNESIUM 1.8 mg/dL (1.8-2.4); POTASSIUM 3.3 mmol/L (3.5-5.1)
[2018-05-02 13:02] LABS: ABSOLUTE NEUTROPHILS 3.6 thou/uL (1.4-8.2); PLATELET ESTIMATE NORMAL
[2018-05-02] MEDS ORDERED: PROCHLORPERAZINE5 M2 PO (14:16)
[2018-05-02] MEDS ORDERED: REGLAN 10 MG TA10 MG PO (14:16)
[2018-05-02] MEDS ORDERED: LEVAQUIN 500 M500 M2 PO (15:08)
[2018-05-02] MEDS ORDERED: METRONIDAZOLE500 M4 PO (15:08)
[2018-05-02 15:30] VITALS: BP 166/79
== END 2018-05-02 16:00 | disposition home or self-care (01) | DRG 947 ==
LOC: ENTRNSPT 05-02 16:05
PROVIDERS: Internal Medicine Infectious Disease; Nurse Practitioner; Nurse Practitioner Family
DX: R53.81 Other malaise (principal); A41.2 Sepsis due to unspecified staphylococcus; E43 Unspecified severe protein-calorie malnutrition; N12 Tubulo-interstitial nephritis, not specified as acute or chronic; N17.9 Acute kidney failure, unspecified; D62 Acute posthemorrhagic anemia; K57.92 Diverticulitis of intestine, part unspecified, without perforation or abscess without bleeding; G89.29 Other chronic pain; R53.1 Weakness; I10 Essential (primary) hypertension; F41.8 Other specified anxiety disorders; E87.6 Hypokalemia; E83.42 Hypomagnesemia; D35.02 Benign neoplasm of left adrenal gland; E86.0 Dehydration; M41.85 Other forms of scoliosis, thoracolumbar region; R19.7 Diarrhea, unspecified; M62.84 Sarcopenia; M81.0 Age-related osteoporosis without current pathological fracture; Z88.6 Allergy status to analgesic agent; Z90.49 Acquired absence of other specified parts of digestive tract; Z88.8 Allergy status to other drugs, medicaments and biological substances; Z98.1 Arthrodesis status; Z68.31 Body mass index [BMI] 31.0-31.9, adult; Z80.3 Family history of malignant neoplasm of breast; Z80.0 Family history of malignant neoplasm of digestive organs
CPT/HCPCS: 10112